=== PATIENT | male | born 1995 | race Hispanic/Latino ===

== ENCOUNTER 2019-05-18 10:05 | Inpatient (IN) | payer SELFPAY ==
[2019-05-18] MEDS ORDERED: Morphine 4 MG/ML VIAL ONE (10:16)
[2019-05-18] MEDS ORDERED: Ondansetron PF 4 MG/2 ML Vial ONE ×2 (10:16→11:12)
[2019-05-18] MEDS ORDERED: Fentanyl 100 MCG/2 ML VIAL ONE ×3 (10:28→13:58)
[2019-05-18 10:31] LABS: #Eosinphils 0.1 thou/uL (0.0-0.7); #Lymphocytes 2.2 thou/uL (1.20-3.40); #Monocytes 0.6 thou/uL (0.11-0.59); #Neutrophils 9.5 thou/uL (1.40-6.50); %Basophils 0.2 % (0.0-1.0); %Eosinophils 0.6 % (0.0-10.0); %Lymphocytes 17.7 % (21.0-51.0); %Monocytes 4.7 % (0.0-10.0); %Neutrophils 76.8 % (42.0-75.0); Hemoglobin 14.9 g/dL (14.0-18.0); Mean Corpuscular Hemoglobin 30.9 pg (27.0-31.0); Mean Corpuscular Volume 90.7 fL (78.0-98.0); Mean Platelet Volume 8.1 fL (7.4-10.4); Platelet Count 258 thou/uL (130-400); RBC Distribution Width 11.6 % (11.5-14.5); Red Blood Cell (RBC) Count 4.82 mill/uL (4.70-6.10); White Blood Cell (WBC) Count 12.3 thou/uL (4.8-10.8)
--- NOTE | 2019-05-18 10:32 | RAD ---
EXAM: XR Femur Lt 2 View STANDARD PROVIDED CLINICAL HISTORY: Injury COMPARISON: None FINDINGS: Displaced fracture mid shaft left femur with one shaft's width lateral and posterior displacement of the distal fracture fragment and associated fracture overriding. Alignment at the hip and knee joints appears anatomic. No additional fracture is seen. IMPRESSION: Displaced mid shaft left femoral fracture.
--- NOTE | 2019-05-18 10:32 | RAD ---
Exam: AP pelvis one view: HISTORY: Injury from trauma COMPARISON: None FINDINGS: No evidence for fracture, dislocation, or other significant acute osseous abnormality. IMPRESSION: No significant acute process.
--- NOTE | 2019-05-18 10:33 | RAD ---
Exam: Left tibia and fibula 2 views: HISTORY: Injury from trauma COMPARISON: None FINDINGS: No evidence for fracture, dislocation, or other significant acute osseous abnormality. IMPRESSION: No significant acute process.
--- NOTE | 2019-05-18 10:34 | RAD ---
EXAM: Chest one view: HISTORY: Injury from trauma COMPARISON: None FINDINGS: Poor inspiratory effort. Heart size: Within normal limits. Lungs: Clear of acute process. No evidence for confluent pneumonia, pleural effusion, acute edema, or pneumothorax, or other signifi cant acute process. IMPRESSION: No significant acute intrathoracic disease.
[2019-05-18 10:41] LABS: Prothrombin Time 12.9 SEC (12.0-14.7)
[2019-05-18 10:51] LABS: ALT (SGPT) 29 U/L (8-55); AST (SGOT) 23 U/L (5-34); Albumin 4.7 g/dL (3.5-5.0); Alcohol Less than 10 mg/dL (Less than 10); Alkaline Phosphatase 127 U/L (40-110); Anion Gap 15 mmol/L (10-20); BUN (Urea Nitrogen) 15 mg/dL (8.9-20.6); Bilirubin, Total 0.4 mg/dL (0.2-1.2); Calc. Creatinine Clearance 0 mL/min (70-130); Calcium 8.8 mg/dL (7.8-10.44); Carbon Dioxide 21 mmol/L (22-29); Chloride 106 mmol/L (98-107); Estimated GFR-MDRD Greater than 90; Globulin 2.6 g/dL (2.4-3.5); Glucose 120 mg/dL (70-105); Potassium 3.6 mmol/L (3.5-5.1); Protein, Total 7.3 g/dL (6.0-8.3); Sodium 138 mmol/L (136-145)
--- NOTE | 2019-05-18 10:54 | CT ---
EXAM: CT Cervical Spine WO Con PROVIDED CLINICAL HISTORY: Trauma COMPARISON: None FINDINGS: There is no evidence for fracture or traumatic subluxation. 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 Chronic appearing disc protrusion at C4-5. No prevertebral soft tissue swelling apparent. The visuali zed lung apices appear clear. IMPRESSION: No evidence for fracture or traumatic subluxation.
--- NOTE | 2019-05-18 10:54 | CT ---
Exam: Lumbar spine CT scan without IV contrast: HISTORY: Trauma, injury from a fall FINDINGS: No evidence for acute fracture or dislocation. No significant stenosis. No malalignment. IMPRESSION: Unremarkable lumbar spine CT scan. No fracture or dislocation.
--- NOTE | 2019-05-18 10:57 | CT ---
EXAM: CT Thoracic Spine WO Con PROVIDED CLINICAL HISTORY: Trauma COMPARISON: None FINDINGS: No evidence for fracture or traumatic subluxation. 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 Vertebral body heights appear preserved. No significant central canal or foraminal narrowing apparent. IMPRESSION: No evidence for fracture or traumatic subluxation.
[2019-05-18] MEDS ORDERED: Succinylcholine Chloride 20 MG/ML 10 ml SYRINGE FS ONE (11:12)
[2019-05-18] MEDS ORDERED: Lidocaine 1% PF 5 ML VIAL ONE (11:12)
[2019-05-18] MEDS ORDERED: Dexamethasone 20 MG/5 ML VIAL ONE (11:12)
[2019-05-18] MEDS ORDERED: PHENYLEPHRINE-NS 100 MCG/ML 10 ML SYRINGE ONE (11:12)
[2019-05-18] MEDS ORDERED: PROPOFOL 200 MG/20 ML VIAL ONE (11:12)
[2019-05-18] MEDS ORDERED: ePHEDrine/0.9% NaCl/PF SYRINGE 50 mg/10 ml ONE (11:12)
[2019-05-18] MEDS ORDERED: Rocuronium Bromide 10 MG/ML (10ML VIAL) ONE (11:12)
[2019-05-18] MEDS ORDERED: Ondansetron PF 4 MG/2 ML Vial IVP PRN ×2 (11:15→13:36)
[2019-05-18] MEDS ORDERED: Morphine 4 MG/ML VIAL SLOW IVP PRN (11:15)
[2019-05-18] MEDS ORDERED: Dextrose 50% Abboject 50 ML SYRINGE SLOW IVP PRN (11:15)
[2019-05-18] MEDS ORDERED: hydrALAZINE 20 MG/ML VIAL SLOW IVP PRN (11:15)
[2019-05-18] MEDS ORDERED: Dextrose 5% in Water 1,000 ML IV PRN (11:15)
[2019-05-18] MEDS ORDERED: Promethazine HCl 25 MG/ML VIAL IVPB PRN (11:15)
[2019-05-18] MEDS ORDERED: traMADol HCl 50 MG TAB PO PRN ×2 (11:17)
[2019-05-18] MEDS ORDERED: Cyclobenzaprine 10 MG TAB PO PRN (11:17)
[2019-05-18] MEDS ORDERED: Promethazine HCl 25 MG/ML VIAL IM PRN (11:19)
[2019-05-18] MEDS ORDERED: Ondansetron HCl/PF 4 MG/2 ML Vial IVP PRN (11:19)
[2019-05-18] MEDS ORDERED: Promethazine HCl 25 MG/ML VIAL SLOW IVP PRN (11:19)
[2019-05-18 11:26] LABS: Phosphorus 2.7 mg/dL (2.3-4.7)
[2019-05-18] MEDS ORDERED: Fentanyl 250 MCG/5 ML VIAL ONE (11:27)
[2019-05-18] MEDS ORDERED: Ibuprofen 800 MG TAB PO SCH (11:30)
[2019-05-18] MEDS ORDERED: Neomycin-Polymyxin 1 ML AMP ONE ×2 (11:43→11:44)
[2019-05-18] MEDS ORDERED: PHOS-NAK 1 PKT PACK PO SCH (11:45)
--- NOTE | 2019-05-18 12:10 | CON ---
DATE OF CONSULTATION: 05/18/2019 HISTORY OF PRESENT ILLNESS: Mr. 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 He fell out of the house onto his lower extremities and had immediate pain and deformity in the left thigh. The patient was unable to ambulate. He was brought to the emergency room by ambulance. X-rays revealed a displaced midshaft fracture of left femur. He has no neurologic complaints in the left lower extremity. No other complaints elsewhere. PAST MEDICAL HISTORY: Medical illnesses, none. CURRENT MEDICATIONS: None. PAST SURGICAL HISTORY: None. ALLERGIES: NONE. PHYSICAL EXAMINATION: GENERAL: The patient is pleasant male, alert and oriented x3. Cooperative with the examination. VITAL SIGNS: The patient is afebrile. His vital signs are stable. HEENT: Unremarkable for age. NEURO: Cranial nerves II through XII are grossly intact. NECK: Thoracic and lumbar spine are nontender to palpation. LUNGS: Clear bilaterally. HEART: Regular rate and rhythm. ABDOMEN: Soft and nontender. Bowel sounds positive. GENITOURINARY: Not done. EXTREMITIES: Unremarkable except left lower extremity, there is swelling in the left thigh. The left lower extremity is shortened and externally rotated. He has good peripheral pulses in the left foot. He is able to flex and extend his ankle and toes well and has normal sensation. DIAGNOSTIC DATA: X-rays of the left femur shows midshaft fracture of the left femur. PLAN: The patient will be taken to surgery for intramedullary rodding of the midshaft fracture of the left femur. Potential risks with the condition of surgery include, but are not limited to infection, bleeding, pain, damage to blood vessels and nerves, nonunion, malunion, the patient may require additional surgery, may have to remove any hardware that is placed in, DVT and PE formation. The patient's questions were answered and agreed to the procedure. Job ID: [id number]
--- NOTE | 2019-05-18 12:39 | HP ---
TRAUMA SURGEON: Dr. Laura. CONSULTING PHYSICIAN: Kvng Palomino MD of Orthopedic Surgery. HISTORY OF PRESENT ILLNESS: The patient is a 23-year-old male, who presented to the emergency department via EMS as a level 2 trauma activation after he had a mechanical fall from a roof. The patient reports slipping on a wet metal roof and falling about 14 feet. He said he fell forward and complained of left thigh pain and there appeared to be a fracture to the left femur. He was nontender with no signs of trauma anywhere else. He denies anticoagulation use and loss of consciousness. He was not ambulatory on scene. REVIEW OF SYSTEMS: All additional 10-point review of systems negative except as indicated above. PAST MEDICAL HISTORY: None. PAST SURGICAL HISTORY: None. 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 He has a history of marijuana use. Has not smoked marijuana in 2 years. Denies tobacco use. The patient does drink beer daily. MEDICATIONS: None. ALLERGIES: NO KNOWN DRUG ALLERGIES. PHYSICAL EXAMINATION: VITAL SIGNS: Blood pressure 129/102, pulse 82, respirations 20, oxygen saturation 100% on room air. PRIMARY SURVEY: Airway intact. Adequate breath sounds bilaterally. 2+ pulses in the bilateral radials, femorals, and DPs. GCS 15. Gross motor and sensation are intact. No lacerations, bruising, or external bleeding. SECONDARY SURVEY: HEAD: Normocephalic and atraumatic. No gross palpable skull deformities or tenderness. EYES: Pupils 3 to 2, equal, round, reactive bilaterally. ENT: No hemotympanum. No epistaxis. No septal hematoma. Midface stable to manipulation. No blood in the oropharynx. Dentition is intact. No anterior neck injury/crepitus/tenderness. C-SPINE: No step-offs or deformity. Nontender. C-collar in place. CHEST: Nontender. No crepitus. No abrasions or ecchymosis. Equal chest movement. ABDOMEN: Soft, nontender, nondistended. PELVIS: Stable to manipulation. Nontender. No abrasions or ecchymosis. RECTAL: Deferred. GENITOURINARY: Normal external genitalia. No blood at the meatus. EXTREMITIES: Deformity to the left thigh. No open fracture. No abrasions or ecchymosis noted. 2+ pulses in the bilateral radials, femorals, and DPs. BACK/SPINE: No step-offs or deformities or tenderness to palpation of the thoracic or lumbar spine. No abrasions or ecchymosis noted. NEUROLOGIC: 5/5 strength in bilateral civil project engineer, dorsiflexion, and plantar flexion. Gross normal sensation x4 extremities. LABORATORY DATA: White count 12.3, hemoglobin 14.9, hematocrit 43.7, platelets 258. INR 1.0. Sodium 138, potassium 3.6, chloride 106, bicarb 21, BUN 15, creatinine 0.69, glucose 120, phosphorus 2.7, magnesium 2.0, total bilirubin 0.4, AST 23, ALT 29, alkaline phosphatase 127, albumin 4.7. Alcohol is less than 10. DIAGNOSTIC FINDINGS: Chest x-ray demonstrates no acute intrathoracic disease. X-ray of the left femur demonstrates displaced midshaft left femur fracture. X-ray of the pelvis demonstrates no significant acute process. X-ray of the left tib-fib demonstrates no significant acute process. X-ray of the C-spine demonstrates no evidence for fracture or traumatic subluxation. CT of the thoracic spine demonstrates no evidence for fracture or traumatic subluxation. CT of the lumbar spine demonstrates unremarkable lumbar spine CT scan. No fracture or dislocation. ASSESSMENT: 1. Status post fall from 14 feet. 2. Left midshaft femur fracture. 3. Acute traumatic pain secondary to femur fracture. 4. Daily alcohol abuse. PLAN: The patient will be admitted to the surgical nursing floor under the trauma team. Dr. Palomino of Orthopedic Surgery has been consulted and plans to take the patient to the OR today first for surgical fixation. He will receive both p.o. and IV pain medications. He is n.p.o. for OR with normal saline at 120 an hour. Postoperatively, he will receive a regular diet. The patient will also receive Serax for alcohol withdrawal as well as multivitamins, thiamine, and folic acid. Alcohol currently is negative, but we are pending a urine drug screen at this time. We will follow that out. The patient will also receive a small dose of phosphorus oral for acute hypophosphatemia. Postoperatively, the patient will work with Physical and Occupational Therapy. He will likely not need any placement at the time of discharge and can go home at that time. The patient was discussed with Dr. Laura before this dictation. Job ID: [id number]
[2019-05-18] MEDS ORDERED: SUGAMMADEX SODIUM 500 MG/5 ML VIAL ONE (12:51)
[2019-05-18] MEDS ORDERED: Bupivacaine HCl 0.5%/Epinephrine 1:200,000/PF 30 ml Vial ONE (13:15)
[2019-05-18] MEDS ORDERED: Cepastat Lozenges 1 LOZ PO PRN (13:36)
[2019-05-18] MEDS ORDERED: Milk Of Magnesia 30 ML UDCUP PO PRN (13:36)
[2019-05-18] MEDS ORDERED: Bisacodyl 10 MG SUPP PR PRN (13:36)
[2019-05-18] MEDS ORDERED: Ondansetron ODT 4 MG TAB PO PRN (13:36)
[2019-05-18] MEDS ORDERED: Fleet Enema 133 ML BOT PR PRN (13:36)
[2019-05-18] MEDS ORDERED: Ketorolac Tromethamine 30 MG/ML VIAL ONE (13:46)
--- NOTE | 2019-05-18 14:15 | OP ---
DATE OF PROCEDURE: 05/18/2019 PREOPERATIVE DIAGNOSIS: Midshaft fracture of the left femur. POSTOPERATIVE DIAGNOSIS: Midshaft fracture of the left femur. PROCEDURE PERFORMED: Intramedullary rodding of midshaft fracture, left femur. ANESTHESIA: General. DESCRIPTION OF PROCEDURE: The patient was given preoperative IV antibiotics, taken to the operating room, placed in supine position. Satisfactory general anesthesia was performed. The patient was then placed on the fracture table. All bony prominences were well padded. Traction was placed across well-padded left foot and ankle, and C-arm was used to verify good alignment of the midshaft fracture of left femur in AP, lateral, and multiple oblique views. Lateral aspect of the hip and thigh were sterilely prepped and draped. A longitudinal incision was made approximately 2-1/2 inches in length proximal to the greater trochanter and under fluoroscopic visualization. Guide pin was initially placed to the greater trochanter and was then over-reamed. A reaming guide was then placed through the greater trochanter into the intramedullary canal crossing the fracture and down to the distal aspect of the femur. It was then sequentially reamed up to 13.5 mm. The appropriate length maritza was measured and a Synthes 12 mm x 420 mm intramedullary femoral nail was inserted down to the appropriate level and a 5.0 locking screw was placed from anterior to posterior in the distal aspect of the femur. There was excellent fit in the intramedullary canal at the isthmus and therefore, no screws were needed proximally. The wound was then copiously irrigated with antibiotic solution and closed using #1 Vicryl for the iliotibial band and for the fat and subcutaneous tissue, and skin was closed with skin stephen. The small incision on the anterior aspect of the distal left thigh was closed with skin stephen. Sterile dressing was applied. The patient was taken out of traction. He was awakened, extubated, and transferred to recovery room in stable condition. ESTIMATED BLOOD LOSS: 200 mL. COMPLICATIONS: None. Job ID: [id number]
[2019-05-18] MEDS: Acetaminophen 1,000 MG in Premix Bag 1 BAG IVPB SCH ×2 (16:48→18:15)
[2019-05-18] MEDS: Oxazepam 10 MG CAP PO SCH ×2 (16:49→21:40)
[2019-05-18 17:08] VITALS: BMI 32.5
--- NOTE | 2019-05-18 17:09 | RAD ---
EXAM: XR Femur Lt 2 View STANDARD PROVIDED CLINICAL HISTORY: Fracture COMPARISON: Exam earlier same day FINDINGS: Spot fluoroscopic views of the femur demonstrate interval intramedullary femoral nail placement with associated distal interlocking screws transfixing previously described femoral diaphyseal fracture with resultant improved alignment. IMPRESSION: As above.
[2019-05-18] MEDS: Sodium Chloride 0.9% 1,000 ML IV SCH ×2 (18:09→19:47)
[2019-05-18] MEDS: Ketorolac Tromethamine 30 MG/ML VIAL IVP SCH ×2 (18:15→23:25)
[2019-05-18] MEDS: CEFAZOLIN 2 GM in Premix Bag 1 BAG IVPB SCH (19:48)
--- NOTE | 2019-05-18 20:35 | PRG ---
DATE OF SERVICE: 05/18/2019 SUBJECTIVE: The patient is a 23-year-old male, who was working on a roof that was wet. He fell approximately 14 feet, landed on his side and sustained a left displaced midshaft femoral fracture. No other injuries. No loss of consciousness. From the emergency room, he went to Surgery, was repaired by Dr. Palomino. He has no other medical problems. No surgical problems. 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 He is on no medications. No known drug allergies. He is currently in the recovery room, resting comfortably. Vital signs are stable. His white count is 12, H and H of 14 and 43, and platelet count 258. Electrolytes are fine. ASSESSMENT: Midshaft left femur fracture repaired. PLAN: Per Orthopedics. Job ID: [id number]
[2019-05-18] MEDS ORDERED: Senokot S 8.6-50 MG TAB PO SCH (21:00)
[2019-05-18] MEDS: Ferrous Gluconate 324 MG TAB PO SCH (21:39)
[2019-05-18] MEDS: Senokot S 8.6-50 MG TAB PO SCH (21:40)
[2019-05-18] MEDS ORDERED: Acetaminophen 500 MG TAB PO PRN (22:30)
[2019-05-18] MEDS ORDERED: Gabapentin 300 MG CAP PO SCH (23:00)
[2019-05-18] MEDS: Acetaminophen 500 MG TAB PO SCH (23:25)
[2019-05-18] MEDS: traMADol HCl 50 MG TAB PO SCH (23:26)
--- NOTE | 2019-05-19 00:20 | PRG ---
DATE OF SERVICE: 05/18/2019 SUBJECTIVE: Patient remains on the surgical floor. The patient is postop intramedullary rodding for left femur fracture. The patient is currently awake, alert, sitting up in hospital bed. The patient reports moderate amount of pain at this time to his left hip. The patient reports eating and drinking well. Denies any nausea or vomiting. OBJECTIVE: Vital signs stable, afebrile. ASSESSMENT: 1. Status post fall from 14 feet. 2. Left mid shaft femur fracture. 3. Acute traumatic pain secondary to femur fracture. 4. Daily alcohol abuse. PLAN: Continue supportive care. We will continue to have Physical and Occupational Therapy work with the patient. We will schedule patient tramadol and also add gabapentin to the patient's pain regimen. Once the patient's pain is well controlled and able to ambulate safely, the patient should be able to be discharged home. Job ID: [id number]
[2019-05-19] MEDS: CEFAZOLIN 2 GM in Premix Bag 1 BAG IVPB SCH (03:17)
[2019-05-19] MEDS: Ketorolac Tromethamine 30 MG/ML VIAL IVP SCH ×2 (05:32→11:27)
[2019-05-19] MEDS: Acetaminophen 500 MG TAB PO SCH ×2 (05:32→11:27)
[2019-05-19] MEDS: Oxazepam 10 MG CAP PO SCH (05:33)
[2019-05-19] MEDS: traMADol HCl 50 MG TAB PO SCH ×2 (05:33→11:24)
[2019-05-19] MEDS: Sodium Chloride 0.9% 1,000 ML IV SCH (05:39)
[2019-05-19] MEDS ORDERED: Gabapentin 300 MG CAP PO SCH (06:00)
[2019-05-19 06:24] LABS: #Lymphocytes 1.3 thou/uL (1.20-3.40); #Monocytes 0.7 thou/uL (0.11-0.59); #Neutrophils 7.6 thou/uL (1.40-6.50); %Basophils 0.1 % (0.0-1.0); %Eosinophils 0.2 % (0.0-10.0); %Lymphocytes 13.1 % (21.0-51.0); %Monocytes 7.6 % (0.0-10.0); Hemoglobin 10.4 g/dL (14.0-18.0); Mean Corpuscular HGB CONC 34.1 g/dL (32.0-36.0); Mean Corpuscular Hemoglobin 31.7 pg (27.0-31.0); Mean Corpuscular Volume 92.8 fL (78.0-98.0); Mean Platelet Volume 8.3 fL (7.4-10.4); Platelet Count 202 thou/uL (130-400); RBC Distribution Width 11.7 % (11.5-14.5); Red Blood Cell (RBC) Count 3.28 mill/uL (4.70-6.10); White Blood Cell (WBC) Count 9.6 thou/uL (4.8-10.8)
[2019-05-19 06:48] LABS: Anion Gap 12 mmol/L (10-20); BUN (Urea Nitrogen) 11 mg/dL (8.9-20.6); Calc. Creatinine Clearance 224 mL/min (70-130); Calcium 7.9 mg/dL (7.8-10.44); Carbon Dioxide 20 mmol/L (22-29); Chloride 108 mmol/L (98-107); Estimated GFR-MDRD Greater than 90; Glucose 136 mg/dL (70-105); Potassium 4.2 mmol/L (3.5-5.1); Sodium 136 mmol/L (136-145)
[2019-05-19] MEDS ORDERED: PHOS-NAK 1 PKT PACK PO SCH (07:30)
[2019-05-19] MEDS: Senokot S 8.6-50 MG TAB PO SCH (07:53)
[2019-05-19] MEDS: Ferrous Gluconate 324 MG TAB PO SCH (07:54)
[2019-05-19] MEDS ORDERED: FLU VACC QS2019-20(6MOS UP)/PF 60 MCG/0.5 ML SYRINGE IM ONE (09:00)
[2019-05-19] MEDS ORDERED: Multivitamin W/ Minerals 1 TAB PO SCH ×2 (09:00)
[2019-05-19] MEDS ORDERED: Folic Acid 1 MG TAB PO SCH (09:00)
[2019-05-19] MEDS ORDERED: Enoxaparin Sodium 30 MG/0.3 ML SYRINGE SC SCH (09:00)
[2019-05-19] MEDS ORDERED: Thiamine 100 MG TAB PO SCH (09:00)
[2019-05-19] MEDS ORDERED: Polyethylene Glycol 3350 17 GM Packet PO SCH (09:00)
--- NOTE | 2019-05-19 11:40 | DIS ---
DATE OF ADMISSION: 05/18/2019 DATE OF DISCHARGE: 05/19/2019 ADMISSION DIAGNOSES: 1. Fall from a roof about 15 feet. 2. Left femur fracture. DISCHARGE DIAGNOSES: 1. Fall from a roof about 15 feet. 2. Left femur fracture. CONSULTING PHYSICIAN: Dr. Palomino of Orthopedic Surgery. PROCEDURES: The patient went to the OR on May 18, 2019, and had a IM rodding of the left femur. HOSPITAL COURSE: The patient is a 23-year-old male, who presented to the emergency department as a level 2 trauma activation via EMS after he had a mechanical fall from a roof. The patient reported it was a metal roof and he slipped while working, falling forward. He only complained of left-sided thigh pain. Emergency room workup demonstrated the patient had a left midshaft femur fracture that was closed. Dr. Palomino of Orthopedic surgery was consulted and took the patient to the OR the same day. Postoperatively, he worked with Physical and Occupational Therapy. He was tolerating regular diet. Pain was well controlled and he was voiding without difficulty. DISCHARGE DISPOSITION: Home. DISCHARGE CONDITION: Satisfactory. PHYSICAL EXAMINATION: VITAL SIGNS: Temperature 97.9, pulse 100, respirations 18, oxygen saturation 97% on room air, blood pressure 105/62. GENERAL: Well-appearing young male, sitting up in bed with no signs of acute distress. PULMONARY: Equal chest rise and fall. Clear breath sounds bilaterally. No signs of acute respiratory distress. CARDIAC: Regular rate and rhythm. No murmurs, gallops, or rubs. GASTROINTESTINAL: Soft, nontender, nondistended. EXTREMITIES: 2+ pulses in all extremities. Gross motor and sensation are intact. NEUROLOGIC: GCS is 15. DISCHARGE INSTRUCTIONS: The patient was discharged home, weightbearing as tolerated on all extremities. Activity as tolerated with a regular diet and crutches. DISCHARGE MEDICATIONS: Include; 1. Flexeril. 2. Gabapentin. 3. Ibuprofen. 4. Tylenol. 5. MiraLAX. 6. Tramadol. FOLLOWUP APPOINTMENTS: The patient is to follow up with Dr. Palomino in 2 weeks. There is no need for followup with Trauma Clinic. This is a summary of the patient's hospitalization. For full details, please see his medical record in its entirety. Job ID: [id number]
[2019-05-19 12:07] VITALS: BP 103/64; TEMP 98.1
--- NOTE | 2019-05-21 21:16 | PQF ---
[employer] Assistant Crystal Reports Winform ViewerSALMAJEAN Esposito JR ZAKIA COE MD [id number] CLINICAL DOCUMENTATION CLARIFICATION FORM: POST DISCHARGE Addendum to original discharge summary date: ____ Late entry note date: __ DATE: 05/21/2019 ATTN:ZAKIA COE MD Please exercise your independent, professional judgment in responding to the clarification form. Clinical indicators are provided on the bottom of this form for your review Please check appropriate box(s): [ ] Acute blood loss anemia [ ] Post-op anemia related to acute blood loss [ ] Chronic Anemia: [ ] Unable to determine In addition, please specify: Present on Admission (POA): [ ] Yes [ ] No [ ] Unable to determine For continuity of documentation, please document condition throughout progress notes and discharge summary. Thank You. CLINICAL INDICATORS - SIGNS / SYMPTOMS / LAB HGB 14.9 on 05/18 and 10.4 on 05/19 - Documented in Laboratory result HCT 43.7 on 05/18 and 30.5 on 05/19 - Documented in Laboratory result Pulse 108 on 05/18 - Documented in Vital Signs EBL 200ml - Documented in Operative report RISK FACTORS Fracture reduction with IM nail on left remur - Documented in Operative report TREATMENTS: Ferrous Gluconate 324 mg - Documented in Medication report (This form is maintained as a part of the permanent medical record) 2014 [employer] All Rights Reserved [email or web address] [not [email or web address]] [email or web address]
== END 2019-05-19 13:39 | disposition home or self-care (01) | DRG 482 ==
LOC: ERS 10:05 → SDC 11:53 → SURG B 14:12
PROVIDERS: ADMIT Surgery; ATTEND Surgery
PROC: 0QH936Z Insertion of Intramedullary Internal Fixation Device into Left Femoral Shaft, Percutaneous Approach (ICD-10-PCS; principal; 2019-05-18)
DX: S72.302A Unspecified fracture of shaft of left femur, initial encounter for closed fracture (principal); F10.10 Alcohol abuse, uncomplicated; W13.2XXA Fall from, out of or through roof, initial encounter; Y93.H3 Activity, building and construction; Y92.89 Other specified places as the place of occurrence of the external cause; Y99.0 Civilian activity done for income or pay; E83.39 Other disorders of phosphorus metabolism
CPT/HCPCS: 36415; 71045; 72125; 72128; 72131; 72170; 76000; 80048; 80053; 80307; 83735; 84100; 85025; 85610; 85730; 86850; 86900; 86901; 90471; 90686; C1713; C1769; G0008; G0390; J0131; J0670; J0690; J1100; J1650; J1885; J2001; J2270; J2405; J2704; J3010

== ENCOUNTER 2020-03-09 21:48 | Emergency (ER) | payer SELFPAY ==
[2020-03-09] MEDS ORDERED: Lidocaine 1% (PF) 30 ML VIAL ONE (23:03)
[2020-03-09] MEDS ORDERED: Adacel (T-DAP) 0.5 ML SYRINGE ONE ×3 (23:34→23:47)
[2020-03-09] MEDS ORDERED: Bacitracin 1 PK ONE (23:34)
[2020-03-09] MEDS ORDERED: Aspirin Chewable 81 MG TAB ONE (23:41)
== END 2020-03-09 23:47 | disposition home or self-care (01) ==
LOC: ERS 21:48
DX: S61.216A Laceration without foreign body of right little finger without damage to nail, initial encounter (principal); F17.210 Nicotine dependence, cigarettes, uncomplicated; Z23 Encounter for immunization; W26.8XXA Contact with other sharp object(s), not elsewhere classified, initial encounter; Y99.0 Civilian activity done for income or pay
CPT/HCPCS: 12001; 90471; 90715; J2001

== ENCOUNTER 2021-05-02 13:48 | Inpatient (IN) | payer SELFPAY ==
[~2021-05-02 13:48] MED LIST: Iopamidol-370 76% 500 ML 1 ML ONE
[2021-05-02] MEDS ORDERED: Morphine 4 MG/ML VIAL ONE ×3 (14:04→18:04)
[2021-05-02 15:45] LABS: Bacteria/HPF None Seen HPF (None Seen); Bilirubin Negative (Negative); Blood, Urine Trace (Negative); Clarity Clear (Clear); Glucose, Urine (Dipstick) Normal (Negative); Ketone, Urine Negative (Negative); Leukocyte Negative Leu/uL (Negative); Nitrite Negative (Negative); Protein, Urine (Dipstick) Negative (Neg-Trace); RBC/HPF 0-3 HPF (0-3); Specific Gravity, Urine 1.013 (1.002-1.036); Squamous Epithelial None Seen HPF (0-3); WBC/HPF 0-3 HPF (0-3)
[2021-05-02] MEDS ORDERED: Ibuprofen 200 MG TAB ONE (17:54)
[2021-05-02] MEDS ORDERED: Acetaminophen 325 MG TAB ONE (17:54)
[2021-05-02] MEDS ORDERED: Fentanyl 100 MCG/2 ML VIAL ONE (18:04)
[2021-05-02] MEDS ORDERED: Cefepime 2 GM VIAL ONE (18:09)
[2021-05-02 18:13] LABS: #Lymphocytes 2.2 thou/uL (1.20-3.40); #Neutrophils 13.7 thou/uL (1.40-6.50); %Basophils 0.1 % (0.0-1.0); %Eosinophils 0.1 % (0.0-10.0); %Lymphocytes 12.7 % (21.0-51.0); %Monocytes 6.2 % (0.0-10.0); Hemoglobin 12.6 g/dL (14.0-18.0); Mean Corpuscular HGB CONC 34.8 g/dL (32.0-36.0); Mean Corpuscular Hemoglobin 31.4 pg (27.0-31.0); Mean Corpuscular Volume 90.4 fL (78.0-98.0); Platelet Count 360 thou/uL (130-400); RBC Distribution Width 11.4 % (11.5-14.5); White Blood Cell (WBC) Count 16.9 thou/uL (4.8-10.8)
[2021-05-02 18:34] LABS: ALT (SGPT) 11 U/L (8-55); AST (SGOT) 9 U/L (5-34); Albumin 3.6 g/dL (3.5-5.0); Alkaline Phosphatase 105 U/L (40-110); Anion Gap 14 mmol/L (10-20); BUN (Urea Nitrogen) 7 mg/dL (8.9-20.6); Bilirubin, Total 0.6 mg/dL (0.2-1.2); Calc. Creatinine Clearance 0 mL/min (70-130); Calcium 8.5 mg/dL (7.8-10.44); Carbon Dioxide 23 mmol/L (22-29); Chloride 100 mmol/L (98-107); Globulin 3.7 g/dL (2.4-3.5); Glucose 108 mg/dL (70-105); Potassium 4.5 mmol/L (3.5-5.1); Protein, Total 7.3 g/dL (6.0-8.3); Sodium 132 mmol/L (136-145)
[2021-05-02] MEDS ORDERED: Vancomycin 1 GM/200 ML BAG ONE ×2 (18:50→19:38)
[2021-05-02] MEDS ORDERED: diphenhydrAMINE 50 MG/ML VIAL ONE (19:04)
[2021-05-02] MEDS ORDERED: HYDROcodone/Acetaminophen 10/325 mg Tablet PO PRN (21:24)
[2021-05-02] MEDS ORDERED: Ondansetron ODT 4 MG TAB PO PRN (21:24)
[2021-05-02] MEDS ORDERED: Ondansetron PF 4 MG/2 ML Vial IVP PRN (21:24)
[2021-05-03 01:08] VITALS: BMI 30.5
[2021-05-03] MEDS: HYDROcodone/Acetaminophen 10/325 mg Tablet PO SCH ×6 (02:12→20:46)
[2021-05-03] MEDS: Lactated Ringer's 1,000 ML IV SCH ×3 (02:33→17:19)
[2021-05-03 03:08] LABS: #Eosinphils 0.1 thou/uL (0.0-0.7); #Monocytes 1.3 thou/uL (0.11-0.59); #Neutrophils 14.7 thou/uL (1.40-6.50); %Basophils 0.1 % (0.0-1.0); %Eosinophils 0.4 % (0.0-10.0); %Lymphocytes 11.2 % (21.0-51.0); %Monocytes 7.1 % (0.0-10.0); %Neutrophils 81.3 % (42.0-75.0); Hemoglobin 12.3 g/dL (14.0-18.0); Mean Corpuscular HGB CONC 34.3 g/dL (32.0-36.0); Mean Corpuscular Hemoglobin 30.9 pg (27.0-31.0); Mean Platelet Volume 7.3 fL (7.4-10.4); Platelet Count 367 thou/uL (130-400); RBC Distribution Width 11.6 % (11.5-14.5); Red Blood Cell (RBC) Count 3.97 mill/uL (4.70-6.10); White Blood Cell (WBC) Count 18.1 thou/uL (4.8-10.8)
[2021-05-03 03:17] LABS: Vancomycin, Trough 8.1 ug/mL
[2021-05-03 03:47] LABS: ALT (SGPT) Less than 7 U/L (8-55); AST (SGOT) 6 U/L (5-34); Albumin 3.4 g/dL (3.5-5.0); Alkaline Phosphatase 97 U/L (40-110); Anion Gap 9 mmol/L (10-20); BUN (Urea Nitrogen) 7 mg/dL (8.9-20.6); Bilirubin, Total 0.5 mg/dL (0.2-1.2); Calc. Creatinine Clearance 156 mL/min (70-130); Calcium 8.5 mg/dL (7.8-10.44); Carbon Dioxide 27 mmol/L (22-29); Chloride 104 mmol/L (98-107); Globulin 3.4 g/dL (2.4-3.5); Glucose 130 mg/dL (70-105); Potassium 4.4 mmol/L (3.5-5.1); Protein, Total 6.8 g/dL (6.0-8.3); Sodium 136 mmol/L (136-145)
[2021-05-03] MEDS: Vancomycin HCl 1.25 GM in Sodium Chloride 0.9% 250 ML 250 ML IVPB SCH ×3 (04:13→20:45)
[2021-05-03] MEDS: Acetaminophen 325 MG TAB PO PRN ×3 (04:14→23:10)
[2021-05-03] MEDS: Morphine 4 MG/ML VIAL SLOW IVP PRN (04:17)
[2021-05-03] MEDS: Cefepime 2 GM in Sodium Chloride 0.9% 100 ML IVPB SCH ×2 (05:54→17:20)
[2021-05-03] MEDS ORDERED: Vancomycin HCl 2 GM in Sodium Chloride 0.9% 250 ML 300 ML IVPB SCH (06:00)
[2021-05-03] MEDS ORDERED: FLU VACC QS2021-22(6MOS UP)/PF 60 MCG/0.5 ML SYRINGE IM ONE (09:00)
[2021-05-03] MEDS ORDERED: Polyethylene Glycol 3350 17 GM Packet PO PRN (10:45)
[2021-05-03 12:35] LABS: SARS-CoV-2 PCR by NAA Not Detected (NotDetected)
[2021-05-04] MEDS: HYDROcodone/Acetaminophen 10/325 mg Tablet PO SCH ×6 (02:02→20:48)
[2021-05-04] MEDS: Lactated Ringer's 1,000 ML IV SCH ×3 (02:03→12:24)
[2021-05-04] MEDS: Vancomycin HCl 1.25 GM in Sodium Chloride 0.9% 250 ML 250 ML IVPB SCH (04:10)
[2021-05-04] MEDS: Acetaminophen 325 MG TAB PO PRN (04:11)
[2021-05-04 04:47] LABS: #Eosinphils 0.1 thou/uL (0.0-0.7); #Monocytes 0.8 thou/uL (0.11-0.59); #Neutrophils 9.4 thou/uL (1.40-6.50); %Basophils 0.1 % (0.0-1.0); %Eosinophils 1.2 % (0.0-10.0); %Lymphocytes 16.2 % (21.0-51.0); %Monocytes 6.4 % (0.0-10.0); %Neutrophils 76.1 % (42.0-75.0); Hemoglobin 10.9 g/dL (14.0-18.0); Mean Corpuscular HGB CONC 33.5 g/dL (32.0-36.0); Mean Corpuscular Hemoglobin 30.6 pg (27.0-31.0); Mean Corpuscular Volume 91.3 fL (78.0-98.0); Mean Platelet Volume 7.3 fL (7.4-10.4); Platelet Count 363 thou/uL (130-400); RBC Distribution Width 11.5 % (11.5-14.5); Red Blood Cell (RBC) Count 3.56 mill/uL (4.70-6.10); White Blood Cell (WBC) Count 12.3 thou/uL (4.8-10.8)
[2021-05-04 04:59] LABS: Vancomycin, Trough 9.5 ug/mL
[2021-05-04 05:03] LABS: ALT (SGPT) 9 U/L (8-55); AST (SGOT) 6 U/L (5-34); Albumin 3.2 g/dL (3.5-5.0); Alkaline Phosphatase 93 U/L (40-110); Anion Gap 11 mmol/L (10-20); BUN (Urea Nitrogen) 7 mg/dL (8.9-20.6); Bilirubin, Total 0.5 mg/dL (0.2-1.2); Calc. Creatinine Clearance 197 mL/min (70-130); Calcium 8.5 mg/dL (7.8-10.44); Carbon Dioxide 28 mmol/L (22-29); Chloride 99 mmol/L (98-107); Globulin 3.5 g/dL (2.4-3.5); Glucose 106 mg/dL (70-105); Protein, Total 6.7 g/dL (6.0-8.3); Sodium 134 mmol/L (136-145)
[2021-05-04] MEDS: Morphine 4 MG/ML VIAL SLOW IVP PRN ×2 (05:38→12:22)
[2021-05-04] MEDS: Cefepime 2 GM in Sodium Chloride 0.9% 100 ML IVPB SCH (05:50)
[2021-05-04] MEDS ORDERED: diphenhydrAMINE 25 MG CAP PO SCH (07:15)
[2021-05-04] MEDS ORDERED: VANCOMYCIN 1.75 GM/350 ML BAG 1.75 GM in Premix Bag 1 BAG IVPB SCH (12:00)
[2021-05-04] MEDS ORDERED: VANCOMYCIN 1.25 GM/250 ML BAG 1.25 GM in Premix Bag 1 BAG IVPB SCH (12:00)
[2021-05-04] MEDS: Vancomycin HCl 1.75 GM in Sodium Chloride 0.9% 500 ML IVPB SCH ×2 (13:31→20:48)
[2021-05-04] MEDS: Doxycycline 100 MG CAP PO SCH ×2 (17:30→20:48)
[2021-05-05] MEDS: Acetaminophen 325 MG TAB PO PRN (00:54)
[2021-05-05] MEDS: HYDROcodone/Acetaminophen 10/325 mg Tablet PO SCH ×6 (00:58→20:32)
[2021-05-05] MEDS: Morphine 4 MG/ML VIAL SLOW IVP PRN ×3 (05:32→22:14)
[2021-05-05] MEDS: Lactated Ringer's 1,000 ML IV SCH ×3 (05:41→17:05)
[2021-05-05] MEDS: Vancomycin HCl 1.75 GM in Sodium Chloride 0.9% 500 ML IVPB SCH (05:42)
[2021-05-05 07:11] LABS: #Eosinphils 0.3 thou/uL (0.0-0.7); #Lymphocytes 1.8 thou/uL (1.20-3.40); #Monocytes 1.1 thou/uL (0.11-0.59); #Neutrophils 8.3 thou/uL (1.40-6.50); %Basophils 0.1 % (0.0-1.0); %Eosinophils 2.6 % (0.0-10.0); %Lymphocytes 15.3 % (21.0-51.0); %Monocytes 9.2 % (0.0-10.0); %Neutrophils 72.7 % (42.0-75.0); Hemoglobin 10.6 g/dL (14.0-18.0); Mean Corpuscular HGB CONC 34.2 g/dL (32.0-36.0); Mean Corpuscular Hemoglobin 31.2 pg (27.0-31.0); Mean Corpuscular Volume 91.1 fL (78.0-98.0); Mean Platelet Volume 7.2 fL (7.4-10.4); Platelet Count 385 thou/uL (130-400); RBC Distribution Width 11.6 % (11.5-14.5); Red Blood Cell (RBC) Count 3.39 mill/uL (4.70-6.10); White Blood Cell (WBC) Count 11.5 thou/uL (4.8-10.8)
[2021-05-05 07:31] LABS: ALT (SGPT) 10 U/L (8-55); AST (SGOT) 7 U/L (5-34); Albumin 3.1 g/dL (3.5-5.0); Alkaline Phosphatase 93 U/L (40-110); Anion Gap 12 mmol/L (10-20); BUN (Urea Nitrogen) 5 mg/dL (8.9-20.6); Bilirubin, Total 0.5 mg/dL (0.2-1.2); Calc. Creatinine Clearance 189 mL/min (70-130); Calcium 8.7 mg/dL (7.8-10.44); Carbon Dioxide 28 mmol/L (22-29); Chloride 101 mmol/L (98-107); Globulin 3.5 g/dL (2.4-3.5); Glucose 109 mg/dL (70-105); Potassium 4.6 mmol/L (3.5-5.1); Protein, Total 6.6 g/dL (6.0-8.3); Sodium 136 mmol/L (136-145)
[2021-05-05] MEDS: Doxycycline 100 MG CAP PO SCH ×2 (08:27→20:32)
[2021-05-05 11:39] LABS: Vancomycin, Trough 22.3 ug/mL
[2021-05-05] MEDS ORDERED: VANCOMYCIN 1.25 GM/250 ML BAG 1.25 GM in Premix Bag 1 BAG IVPB SCH (12:00)
[2021-05-05] MEDS ORDERED: VANCOMYCIN 1.75 GM/350 ML BAG 1.75 GM in Premix Bag 1 BAG IVPB SCH (12:00)
[2021-05-05] MEDS: Vancomycin 1.5 GRAM/300 ML BAG 1.5 GM in Premix Bag 1 BAG IVPB SCH ×2 (12:35→20:32)
[2021-05-06] MEDS: HYDROcodone/Acetaminophen 10/325 mg Tablet PO SCH ×4 (00:50→12:41)
[2021-05-06] MEDS: Lactated Ringer's 1,000 ML IV SCH ×2 (00:51→10:02)
[2021-05-06] MEDS: Vancomycin 1.5 GRAM/300 ML BAG 1.5 GM in Premix Bag 1 BAG IVPB SCH (04:41)
[2021-05-06 06:12] LABS: #Eosinphils 0.4 thou/uL (0.0-0.7); #Lymphocytes 2.4 thou/uL (1.20-3.40); #Neutrophils 7.4 thou/uL (1.40-6.50); %Basophils 0.2 % (0.0-1.0); %Eosinophils 3.5 % (0.0-10.0); %Lymphocytes 21.2 % (21.0-51.0); %Monocytes 8.7 % (0.0-10.0); %Neutrophils 66.4 % (42.0-75.0); Hemoglobin 10.4 g/dL (14.0-18.0); Mean Corpuscular HGB CONC 33.1 g/dL (32.0-36.0); Mean Corpuscular Volume 90.8 fL (78.0-98.0); Mean Platelet Volume 7.1 fL (7.4-10.4); Platelet Count 448 thou/uL (130-400); RBC Distribution Width 11.6 % (11.5-14.5); Red Blood Cell (RBC) Count 3.46 mill/uL (4.70-6.10); White Blood Cell (WBC) Count 11.1 thou/uL (4.8-10.8)
[2021-05-06 06:29] LABS: ALT (SGPT) 12 U/L (8-55); AST (SGOT) 9 U/L (5-34); Albumin 3.3 g/dL (3.5-5.0); Alkaline Phosphatase 95 U/L (40-110); Anion Gap 12 mmol/L (10-20); BUN (Urea Nitrogen) 6 mg/dL (8.9-20.6); Bilirubin, Total 0.4 mg/dL (0.2-1.2); Calc. Creatinine Clearance 215 mL/min (70-130); Calcium 9.1 mg/dL (7.8-10.44); Carbon Dioxide 28 mmol/L (22-29); Chloride 100 mmol/L (98-107); Globulin 3.7 g/dL (2.4-3.5); Glucose 101 mg/dL (70-105); Potassium 4.8 mmol/L (3.5-5.1); Sodium 135 mmol/L (136-145)
[2021-05-06 06:34] LABS: Chlam.trachomatis by PCR,Urine Not Detected (NotDetected)
[2021-05-06 07:11] VITALS: BP 117/73; TEMP 98.2
[2021-05-06] MEDS: Doxycycline 100 MG CAP PO SCH (08:06)
[2021-05-06 11:24] LABS: Vancomycin, Trough 18.5 ug/mL
[2021-05-06] MEDS ORDERED: Sulfameth/Trimethoprim DS 800-160mg TAB PO SCH (18:00)
== END 2021-05-06 14:58 | disposition home or self-care (01) | DRG 862 ==
LOC: ERS 13:48 → T4-B 21:34
PROVIDERS: ADMIT Family Medicine; ATTEND Family Medicine
DX: T81.40XA Infection following a procedure, unspecified, initial encounter (principal); A41.9 Sepsis, unspecified organism; T81.44XA Sepsis following a procedure, initial encounter; N43.3 Hydrocele, unspecified; F17.210 Nicotine dependence, cigarettes, uncomplicated; D64.9 Anemia, unspecified; L50.0 Allergic urticaria; T36.1X5A Adverse effect of cephalosporins and other beta-lactam antibiotics, initial encounter; N49.2 Inflammatory disorders of scrotum; Z20.822 Contact with and (suspected) exposure to COVID-19; Y83.8 Other surgical procedures as the cause of abnormal reaction of the patient, or of later complication, without mention of misadventure at the time of the procedure; Z98.52 Vasectomy status
CPT/HCPCS: 36415; 74177; 76870; 80053; 80202; 81003; 81015; 83605; 84145; 85025; 87040; 87070; 87077; 87205; 87491; 87591; 93976; 96365; 96366; 96367; 96372; 96375; J0692; J1200; J2270; J3010; J3370; J3490; J7030; J7050; J7120; Q9967; U0003; U0005

== ENCOUNTER 2022-08-30 18:17 | Emergency (ER) | payer SELFPAY ==
[2022-08-30] MEDS ORDERED: Dicyclomine 20 MG/2 ML VIAL ONE (18:38)
[2022-08-30] MEDS ORDERED: Famotidine/PF 20 mg/2ml Vial ONE (18:38)
[2022-08-30] MEDS ORDERED: Ondansetron PF 4 MG/2 ML Vial ONE (18:45)
[2022-08-30 18:58] LABS: #Lymphocytes 1.1 thou/uL (1.20-3.40); #Monocytes 0.5 thou/uL (0.11-0.59); %Basophils 0.2 % (0.0-1.0); %Eosinophils 0.4 % (0.0-10.0); %Lymphocytes 12.5 % (21.0-51.0); %Monocytes 5.9 % (0.0-10.0); Hemoglobin 14.5 g/dL (14.0-18.0); Mean Corpuscular HGB CONC 34.1 g/dL (32.0-36.0); Mean Corpuscular Hemoglobin 30.6 pg (27.0-31.0); Mean Corpuscular Volume 89.8 fl (78.0-98.0); Mean Platelet Volume 7.8 fL (7.4-10.4); Platelet Count 247 10x3/uL (130-400); RBC Distribution Width 11.5 % (11.5-14.5); Red Blood Cell (RBC) Count 4.74 mill/uL (4.70-6.10); White Blood Cell (WBC) Count 8.6 10x3/uL (4.8-10.8)
[2022-08-30 19:19] LABS: ALT (SGPT) 19 U/L (8-55); AST (SGOT) 13 U/L (5-34); Albumin 4.4 g/dL (3.5-5.0); Alkaline Phosphatase 108 U/L (40-110); Anion Gap 13 mmol/L (10-20); BUN (Urea Nitrogen) 11 mg/dL (8.9-20.6); Bilirubin, Total 0.7 mg/dL (0.2-1.2); Calc. Creatinine Clearance 0 mL/min (70-130); Calcium 9.1 mg/dL (7.8-10.44); Carbon Dioxide 24 mmol/L (22-29); Chloride 100 mmol/L (98-107); Estimated GFR 130; Glucose 106 mg/dL (70-105); Lipase 14 U/L (8-78); Potassium 3.9 mmol/L (3.5-5.1); Protein, Total 7.4 g/dL (6.0-8.3); Sodium 133 mmol/L (136-145)
[2022-08-30 20:06] LABS: Bacteria/HPF None Seen HPF (None Seen); Bilirubin Negative (Negative); Blood, Urine Trace (Negative); Clarity Clear (Clear); Glucose, Urine (Dipstick) Normal (Negative); Ketone, Urine Negative (Negative); Leukocyte Negative Leu/uL (Negative); Nitrite Negative (Negative); Protein, Urine (Dipstick) Negative (Neg-Trace); RBC/HPF 0-3 HPF (0-3); Squamous Epithelial None Seen HPF (0-3); Urobilinogen Normal mg/dL (Less than 2); WBC/HPF 0-3 HPF (0-3)
[2022-08-30] MEDS ORDERED: Acetaminophen 500 MG TAB ONE (20:35)
[2022-08-30] MEDS ORDERED: Ketorolac Tromethamine 30 MG/ML VIAL ONE (20:36)
[2022-08-30 20:49] LABS: SARS-CoV-2 NAA Rapid Test Not Detected (NotDetected)
== END 2022-08-30 22:55 | disposition home or self-care (01) ==
LOC: ERS 18:17
DX: R10.816 Epigastric abdominal tenderness (principal); F50.9 Eating disorder, unspecified; F17.210 Nicotine dependence, cigarettes, uncomplicated; Z20.822 Contact with and (suspected) exposure to COVID-19
CPT/HCPCS: 36415; 71045; 74177; 80053; 81003; 81015; 83605; 83690; 85025; 87040; 96372; 96374; 96375; J1885; J2405; Q9967; S0028

== ENCOUNTER 2023-08-11 23:00 | Emergency (ER) | payer SELFPAY ==
[2023-08-11 23:59] LABS: SARS-CoV-2 NAA Rapid Test Not Detected (NotDetected)
[2023-08-12] MEDS ORDERED: Acetaminophen 500 MG TAB ONE (00:03)
[2023-08-12] MEDS ORDERED: Ketorolac Tromethamine 30 MG (1 mL) VIAL ONE (00:03)
== END 2023-08-12 00:55 | disposition home or self-care (01) ==
LOC: ERS 23:00
DX: J10.1 Influenza due to other identified influenza virus with other respiratory manifestations (principal); F17.210 Nicotine dependence, cigarettes, uncomplicated
CPT/HCPCS: 87081; 87430; 96372; 99283; J1885